=== PATIENT | male | born 1965 | race American Indian/Alaskan Native ===

== ENCOUNTER → 2021-12-17 | Outpatient (CLI) | payer OTHER ==
[~2021-12-17] MED LIST: Vicoprofen 2001 EACH PO
[2021-12-17 19:44] LABS: Alanine Aminotransfer (ALT/SGP 32 U/L (12-78); Albumin, Blood 3.7 g/dL (3.4-5.0); Alk Phos 84 U/L (50-136); Anion Gap 6 mmol/L (6-16); Aspartate Aminotrans (AST/SGOT 24 U/L (12-37); Bilirubin, Total 0.4 mg/dL (0.1-1.0); Blood Urea Nitrogen 17 mg/dL (8-24); Bun/Creatinine Ratio 17.7 (12.0-20.0); CHOL/HDL RATIO 3.8; CO2, Blood 26 mmol/L (21-32); Calcium, Blood 9.7 mg/dL (8.5-10.1); Chloride, Blood 110 mmol/L (98-108); Cholesterol 193 mg/dL (50-200); Creatinine, Blood 0.96 mg/dL (0.60-1.20); Globulin, Blood 3.7 g/dL (2.2-4.0); Glomerular Filtration Rate 92 (60-); Glucose, Blood 95 mg/dL (70-99); HDL Cholesterol 51 mg/dL (>39); LDL/HDL RATIO 2.4; Low Density Lipoprotein Chol 122 mg/dL (0-110); Sodium, Blood 142 mmol/L (136-145); Total Protein, Blood 7.4 g/dL (6.4-8.2); Triglycerides 99 mg/dL (30-160); Very Low Density Lipoprot Chol 19 mg/dL (6-32)
[2021-12-17 19:56] LABS: BASOPHILS PERCENT AUTO 1 % (0-2); EOSINOPHILS ABSOLUTE AUTO 0.16 K/mm3 (0.00-0.68); EOSINOPHILS PERCENT AUTO 2 % (0-6); Hematocrit 46.1 % (37.0-53.0); Hemoglobin 14.6 g/dL (13.5-17.5); IMMATURE GRAN ABSOLUTE AUTO 0.05 K/mm3 (0.00-0.10); IMMATURE GRAN PERCENT AUTO 1 % (0-1); LYMPHOCYTES ABSOLUTE AUTO 2.41 K/mm3 (0.84-5.20); LYMPHOCYTES PERCENT AUTO 28 % (21-46); MONOCYTES ABSOLUTE AUTO 0.95 K/mm3 (0.16-1.47); MONOCYTES PERCENT AUTO 11 % (4-13); Mean Corpuscular HGB 29.1 pg (26.0-34.0); Mean Corpuscular HGB Conc 31.7 g/dL (31.5-36.5); Mean Corpuscular Volume 92 fL (80-100); Mean Platelet Volume 9.2 fL (9.1-12.4); NEUTROPHILS ABSOLUTE AUTO 4.82 K/mm3 (1.96-9.15); NEUTROPHILS PERCENT AUTO 57 % (41-73); Platelet Count 311 K/mm3 (150-400); RDW Coefficient Variation 13.8 % (11.7-14.2); RDW Standard Deviation 46.6 fL (35.1-46.3); Red Blood Cell Count 5.01 M/mm3 (4.30-5.90); White Blood Cell Count 8.49 K/mm3 (4.00-11.30)
== END | disposition home or self-care (01) ==
LOC: LAB SHORT 18:47
PROVIDERS: Family Medicine
DX: Z13.6 Encounter for screening for cardiovascular disorders (principal); Z11.59 Encounter for screening for other viral diseases; I10 Essential (primary) hypertension
CPT/HCPCS: 80053; 80061; 85025; 86803

== ENCOUNTER → 2022-12-08 | Outpatient (CLI) | payer OTHER | END | disposition home or self-care (01) | LOC: LAB 10:03 → LAB SHORT 10:03 | DX: E03.9 Hypothyroidism, unspecified (principal) | CPT/HCPCS: 84443 ==

== ENCOUNTER 2023-03-03 09:04 | Day surgery (SDC) | payer OTHER ==
[~2023-03-03] VITALS: Ht 180.3 cm; Wt 89.1 kg
[2023-03-03] MEDS ORDERED: Amlodipine Bes2.5 MG (09:30)
[2023-03-03] MEDS ORDERED: LOSARTAN-HCTZ1 EACH (09:30)
[2023-03-03] MEDS ORDERED: ALPR.5 (09:30)
[2023-03-03] MEDS ORDERED: LEVSOD75 (09:30)
[2023-03-03 12:35] VITALS: BP 119/84
--- NOTE | 2023-03-03 12:40 | NUR ---
03/03/23 1240 Lilian Wild 1210: PATIENT REPORTS FULL FEELING LIKE HE HAS TO USE THE RESTROOM, PATIENT INFORMED THAT HE MAY NEED TO PASS GAS THE COLON IS INFLATED AT TIMES DURING THE PROCEDURE. PATIENT REPORTS HE WOULD NOT DESCRIBE IT PAIN, JUST "LIKE HE HAS TO USE THE BATHROOM". 1220: AFTER USING THE RESTROOM PATIENT STATES IMPROVEMENT AND EXPRESSES READINESS TO GO HOME.
== END 2023-03-03 12:25 | disposition home or self-care (01) ==
LOC: ORSCSDS 09:04
PROVIDERS: Internal Medicine Gastroenterology
PROC: 0DBL8ZX Excision of Transverse Colon, Via Natural or Artificial Opening Endoscopic, Diagnostic (ICD-10-PCS; principal; 2023-03-03 10:45)
PROC: 0DBP8ZX Excision of Rectum, Via Natural or Artificial Opening Endoscopic, Diagnostic (ICD-10-PCS; principal; 2023-03-03 10:45)
PROC: 0DBH8ZX Excision of Cecum, Via Natural or Artificial Opening Endoscopic, Diagnostic (ICD-10-PCS; principal; 2023-03-03 10:45)
DX: Z12.11 Encounter for screening for malignant neoplasm of colon (principal); D12.3 Benign neoplasm of transverse colon; D12.0 Benign neoplasm of cecum; D12.8 Benign neoplasm of rectum; K57.30 Diverticulosis of large intestine without perforation or abscess without bleeding; K64.4 Residual hemorrhoidal skin tags; I10 Essential (primary) hypertension; Z87.891 Personal history of nicotine dependence; E03.9 Hypothyroidism, unspecified; Z79.899 Other long term (current) drug therapy
CPT/HCPCS: 88305; J2704; J7120

== ENCOUNTER → 2023-04-05 | Outpatient (CLI) | payer OTHER ==
[~2023-04-05] MED LIST changes: +ALPR.5; +Amlodipine Bes2.5 MG; +LEVSOD75; +LOSARTAN-HCTZ1 EACH
== END ==
LOC: LAB SHORT 11:38 → LAB 11:38
DX: R31.9 Hematuria, unspecified (principal)
CPT/HCPCS: 87086

== ENCOUNTER 2023-07-05 07:11 | Day surgery (SDC) | payer OTHER ==
[~2023-07-05] VITALS: Ht 177.8 cm; Wt 93.2 kg
[2023-07-05] VITALS (11 sets, daily range): BP systolic 108–153; BP diastolic 58–79
--- NOTE | 2023-07-05 08:56 | NUR ---
Ambulatory in Day Surgery Patient confirms NPO status and agrees with scheduled surgery. History, Chart, Medications and Allergies reviewed before start of procedure.Pre-Op teaching done. Pt verbalizes understanding. Patient States Post-Procedure ride home has been arranged.
--- NOTE | 2023-07-05 09:02 | NUR ---
PT REPORTS TO RN THAT HE TOOK 5 MG VALIUM BY MOUTH AT [address] SAID I COULD HAVE"
--- NOTE | 2023-07-05 11:42 | NUR ---
Discharge instructions reviewed with patient. Patient verbalizes understanding. Copy given to patient to take home. Discharged via wheelchair to private car for ride home.
--- NOTE | 2023-07-05 11:50 | NUR ---
[facility] DISCHARGE NOTE SBAR FROM TIM Laura RN. PT A&OX4, BREATHING RA, VSS, PT REPORTS PAIN TO BE TOLERABLE. Dressing to procedure site clean, dry, intact with no visible drainage, swelling, erythema or bruising noted.PT VOIDED PRIOR TO DISCHARGE. Patient up to Ambulate independently. Gait steady.PT DRESSED INDEPENDENTLY C RN AT BEDSIDE. Discharged via wheelchair to private car for ride home.
== END 2023-07-05 11:55 | disposition home or self-care (01) ==
LOC: ORSCMMR 07:11 → ORD 07:11 → ORSCMMR 07:12 → ORD 09:00
PROVIDERS: Surgery
PROC: 0DTJ4ZZ Resection of Appendix, Percutaneous Endoscopic Approach (ICD-10-PCS; principal; 2023-07-05 09:00)
DX: D12.1 Benign neoplasm of appendix (principal); I10 Essential (primary) hypertension; K57.30 Diverticulosis of large intestine without perforation or abscess without bleeding; Z87.891 Personal history of nicotine dependence; E03.9 Hypothyroidism, unspecified; F41.9 Anxiety disorder, unspecified; Z79.899 Other long term (current) drug therapy
CPT/HCPCS: 88304; A9270; J0690; J1100; J1790; J1885; J2405; J2704; J3010; J7120